=== PATIENT | male | born 1965 | race Caucasian/White ===

== ENCOUNTER 2023-07-07 22:42 | Emergency (ER) | payer OTHER, SELFPAY ==
[2023-07-07 22:46] VITALS: BP 123/76; PULSE 99; RESP 18; TEMP 35.6; O2SAT 96
--- NOTE | 2023-07-07 23:13 | CRLHL7_ITS ---
For Patients: As a result of the Century Cures Act, medical imaging exams and procedure reports are released immediately into your electronic medical record. You may view this report before your referring provider. If you have questions, please contact your health care provider. INDICATION: Right lower quadrant pain. Fevers, chills TECHNIQUE: Multiplanar CT examination of the abdomen and pelvis were acquired after the administration of 83 mL Isovue 370 intravenously and oral contrast. COMPARISON: None. FINDINGS: Lower chest: Linear bandlike opacifications of the lung bases likely due to subsegmental atelectasis and/or scarring. Normal heart size. No focal consolidation. Liver: Normal. Gallbladder/Biliary: Normal. No biliary ductal dilitation. Pancreas: Normal. Spleen: Normal. Adrenal Glands: Normal. Kidneys/Ureters: Edematous right kidney, with regions of geographic hypoenhancement. There is mild right hydroureteronephrosis to the level of the proximal right ureter where there is an obstructing 6 mm calculus. There may be right mild ureteral wall thickening and enhancement. The left kidney and ureter is unremarkable. No left-sided hydroureteronephrosis. There are several nonobstructive calculi within the collecting system of both kidneys. Mild perinephric fat stranding on the right. Bladder: Unremarkable. Bowel: No obstruction or bowel wall thickening. The appendix is normal. No significant colonic diverticulosis. Pelvic organs: Unremarkable. Peritoneum: No free fluid or pneumoperitoneum. No drainable fluid collections. Vessels: Normal. Portal vein remains patent. Mild atherosclerotic disease. Lymph Nodes: No lymphadenopathy. Abdominal Wall/Soft Tissues: Unremarkable. Bones: Unremarkable. IMPRESSION: 1. Mild right hydronephrosis to the level of the proximal right ureter where there is a 6 mm obstructing calculus. Additionally, there are regions of geographic hypo enhancement involving the right renal parenchyma, with enhancement of the ureteral wall, which can be seen with pyelonephritis and ureteritis. Correlation with urinalysis is advised. 2. No acute appendicitis. Please note that all CT scans at this facility use dose modulation, iterative reconstruction, and/or weight-based dosing when appropriate to reduce radiation dose to as low as reasonably achievable. Dictated by Richy Hartman MD @ 07/08/2023 1:32:24 AM (Electronically Signed)
--- NOTE | 2023-07-07 23:14 | ED_ITS ---
HPI - Abdominal Pain General Date Seen: 07/07/23 <Arnol Cárdenas MD - Last Filed: 07/08/23 13:48> Chief Complaint: Abdominal Pain <Arnol Cárdenas MD - Last Filed: 07/08/23 13:48> Stated Complaint: abdominal pain, fever, chills, pos kidney stones <Arnol Cárdenas MD - Last Filed: 07/08/23 13:48> Time Seen by Provider: 07/07/23 22:57 <Arnol Cárdenas MD - Last Filed: 07/08/23 13:48> Source: patient and family <Arnol Cárdenas MD - Last Filed: 07/08/23 13:48> Mode of arrival: ambulatory <Arnol Cárdenas MD - Last Filed: 07/08/23 13:48> Limitations: no limitations <Arnol Cárdenas MD - Last Filed: 07/08/23 13:48> History of Present Illness HPI narrative: 58-year-old previously healthy gentleman presents here with his family, sister and niece, with a history of abdominal pain, fevers up to 101 at home. He is worried about possible kidney stones, as he has had these in the past or possible kidney infection, he does not have any dysuria frequency of urination, he did vomit once at home. Dark color but no blood and by history no coffee grounds. He has had no bowel movements today has not been passing any gas, took Tylenol ibuprofen yesterday with really no improvement of his pain, but then took a hydrocodone approximately 30 minutes before coming in, his mother's old medication, 10 mg in his pain is markedly improved, going from approximately a 10 to a 1. The bumps on the way over did cause him some discomfort, he walks hunched over according to his sister. No previous abdominal surgery is noted. He is on no chronic medications, no history of hospitalizations or surgeries. He smoked for approximately 30+ years 1 pack per day, uses alcohol irregularly last drank 2 weeks ago no use of drugs. COVID status is unknown <Arnol Cárdenas MD - Last Filed: 07/08/23 13:48> Pertinent past history: none <Arnol Cárdenas MD - Last Filed: 07/08/23 13:48> Location: RUQ and RLQ <Arnol Cárdenas MD - Last Filed: 07/08/23 13:48> Severity: moderate <Arnol Cárdenas MD - Last Filed: 07/08/23 13:48> Quality: cramping and stabbing <Arnol Cárdenas MD - Last Filed: 07/08/23 13:48> Radiation: back <Arnol Cárdenas MD - Last Filed: 07/08/23 13:48> Migration to: no migration <Arnol Cárdenas MD - Last Filed: 07/08/23 13:48> Exacerbating factors: movement <Arnol Cárdenas MD - Last Filed: 07/08/23 13:48> Relieving factors: rest <Arnol Cárdenas MD - Last Filed: 07/08/23 13:48> Associated symptoms: nausea, vomiting, fever and chills <Arnol Crádenas MD - Last Filed: 07/08/23 13:48> Treatments prior to arrival: NSAIDs and prescription analgesics <Arnol Cárdenas MD - Last Filed: 07/08/23 13:48> Related Data Allergies/Adverse Reactions: Allergies Allergy/AdvReac Type Severity Reaction Status Date / Time No Known Drug Allergies Allergy Verified 07/07/23 22:50 <Arnol Cárdenas MD - Last Filed: 07/08/23 13:48> Review of Systems Status of ROS Reports: 10 or more systems reviewed and unremarkable except as noted in History and below <Arnol Cárdenas MD - Last Filed: 07/08/23 13:48> PFSH PFS Social History: Social History How often do you have a drink containing alcohol: never AUDIT-C Alcohol total score: 0 Non-prescribed substance use: denies use <Arnol Cárdenas MD - Last Filed: 07/08/23 13:48> Exam Narrative: Exam Narrative: Patient is seen in room 5, with his family. He is alert and interactive with me, pupils are equal round reactive to light there is no scleral icterus redness is TMs are normal his oropharynx is normal, neck is supple full range of motion is TMs are normal. His chest is good air entry bilaterally with no wheezing crackles noted his heart sounds are normal. His abdomen shows tenderness moderate in the right lower quadrant. Testicles both descended and normal, normal penis, no hernias noted. Bowel sounds are normal, no organomegaly is noted, back is nontender to palpation is lower extremities are normal, with normal pulses no edema. Skin reveals no rashes. <Arnol Cárdenas MD - Last Filed: 07/08/23 13:48> Const: Vital Signs, click to edit/add: Vital Signs - 24 hr 07/07/23 22:46 07/08/23 00:30 07/08/23 00:33 Temperature 96.0 F L Pulse Rate 79 Pulse Rate [Left P ulse Oximeter] 99 74 Respiratory Rate 18 16 Blood Pressure 99/58 L Blood Pressure [Ri ght Upper Arm] 123/76 99/58 L Pulse Oximetry 96 95 94 Oxygen Delivery Me thod Room Air Room Air 07/08/23 01:00 07/08/23 01:11 07/08/23 01:20 Temperature 98.0 F Pulse Rate 76 79 Pulse Rate [Left P ulse Oximeter] Respiratory Rate Blood Pressure Blood Pressure [Ri ght Upper Arm] Pulse Oximetry 94 92 Oxygen Delivery Me thod 07/08/23 01:40 07/08/23 01:49 07/08/23 01:50 Temperature Pulse Rate 79 72 72 Pulse Rate [Left P ulse Oximeter] Respiratory Rate Blood Pressure 104/70 Blood Pressure [Ri ght Upper Arm] Pulse Oximetry 93 98 96 Oxygen Delivery Me thod 07/08/23 02:00 07/08/23 02:01 07/08/23 02:20 Temperature Pulse Rate 77 79 74 Pulse Rate [Left P ulse Oximeter] Respiratory Rate Blood Pressure 93/65 Blood Pressure [Ri ght Upper Arm] Pulse Oximetry 95 95 98 Oxygen Delivery Me thod 07/08/23 02:22 07/08/23 02:40 07/08/23 02:41 Temperature Pulse Rate 75 80 79 Pulse Rate [Left P ulse Oximeter] Respiratory Rate Blood Pressure 107/69 113/80 Blood Pressure [Ri ght Upper Arm] Pulse Oximetry 97 95 95 Oxygen Delivery Me thod 07/08/23 02:42 07/08/23 03:00 07/08/23 03:01 Temperature Pulse Rate 79 82 80 Pulse Rate [Left P ulse Oximeter] Respiratory Rate Blood Pressure 108/93 H Blood Pressure [Ri ght Upper Arm] Pulse Oximetry 95 97 96 Oxygen Delivery Me thod 07/08/23 03:20 07/08/23 03:21 07/08/23 03:41 Temperature Pulse Rate 83 81 Pulse Rate [Left P ulse Oximeter] Respiratory Rate Blood Pressure 108/82 117/92 H Blood Pressure [Ri ght Upper Arm] Pulse Oximetry 96 99 Oxygen Delivery Me thod 07/08/23 04:02 07/08/23 04:22 07/08/23 04:41 Temperature Pulse Rate Pulse Rate [Left P ulse Oximeter] Respiratory Rate Blood Pressure 134/43 L 116/44 L 119/70 Blood Pressure [Ri ght Upper Arm] Pulse Oximetry Oxygen Delivery Me thod <Arnol Cárdenas MD - Last Filed: 07/08/23 13:48> Vital Signs, click to edit/add: Vital Signs - 24 hr 07/07/23 22:46 07/08/23 00:30 07/08/23 00:33 Temperature 96.0 F L Pulse Rate 79 Pulse Rate [Left P ulse Oximeter] 99 74 Respiratory Rate 18 16 Blood Pressure 99/58 L Blood Pressure [Ri ght Upper Arm] 123/76 99/58 L Pulse Oximetry 96 95 94 Oxygen Delivery Me thod Room Air Room Air 07/08/23 01:00 07/08/23 01:11 07/08/23 01:20 Temperature 98.0 F Pulse Rate 76 79 Pulse Rate [Left P ulse Oximeter] Respiratory Rate Blood Pressure Blood Pressure [Ri ght Upper Arm] Pulse Oximetry 94 92 Oxygen Delivery Me thod 07/08/23 01:40 07/08/23 01:49 07/08/23 01:50 Temperature Pulse Rate 79 72 72 Pulse Rate [Left P ulse Oximeter] Respiratory Rate Blood Pressure 104/70 Blood Pressure [Ri ght Upper Arm] Pulse Oximetry 93 98 96 Oxygen Delivery Me thod 07/08/23 02:00 07/08/23 02:01 07/08/23 02:20 Temperature Pulse Rate 77 79 74 Pulse Rate [Left P ulse Oximeter] Respiratory Rate Blood Pressure 93/65 Blood Pressure [Ri ght Upper Arm] Pulse Oximetry 95 95 98 Oxygen Delivery Me thod 07/08/23 02:22 07/08/23 02:40 07/08/23 02:41 Temperature Pulse Rate 75 80 79 Pulse Rate [Left P ulse Oximeter] Respiratory Rate Blood Pressure 107/69 113/80 Blood Pressure [Ri ght Upper Arm] Pulse Oximetry 97 95 95 Oxygen Delivery Me thod 07/08/23 02:42 07/08/23 03:00 07/08/23 03:01 Temperature Pulse Rate 79 82 80 Pulse Rate [Left P ulse Oximeter] Respiratory Rate Blood Pressure 108/93 H Blood Pressure [Ri ght Upper Arm] Pulse Oximetry 95 97 96 Oxygen Delivery Me thod 07/08/23 03:20 07/08/23 03:21 07/08/23 03:41 Temperature Pulse Rate 83 81 Pulse Rate [Left P ulse Oximeter] Respiratory Rate Blood Pressure 108/82 117/92 H Blood Pressure [Ri ght Upper Arm] Pulse Oximetry 96 99 Oxygen Delivery Me thod 07/08/23 04:02 07/08/23 04:22 07/08/23 04:41 Temperature Pulse Rate Pulse Rate [Left P ulse Oximeter] Respiratory Rate Blood Pressure 134/43 L 116/44 L 119/70 Blood Pressure [Ri ght Upper Arm] Pulse Oximetry Oxygen Delivery Me thod <Edwige Deluca MD - Last Filed: 07/08/23 07:03> Documenting provider has reviewed patient's vital signs: yes <Arnol Cárdenas MD - Last Filed: 07/08/23 13:48> Course Reevaluation(s) Reevaluation #1: Finding suspicious for obstructing kidney stone based on CT. Significant leukocytosis and elevation of CRP concerning for infection. Blood cultures are collected, Zosyn is started. I spoke with Urology through the [facility]. Patient is accepted for transfer to [facility] [place]. Consent obtained. Patient transferred by ALS ground with no complications. Pressures improved after initial fluid bolus. Did not require any further pain medication treatment. Stable condition. <Edwige Deluca MD - Last Filed: 07/08/23 07:03> Vital Signs Vital signs: Initial Vital Signs Temperature 96.0 F L 07/07/23 22:46 Temperature Source Temporal Artery Scan 07/07/23 22:46 Pulse Rate 99 07/07/23 22:46 Pulse Rhythm Regular 12/10/23 22:46 Respiratory Rate 18 07/07/23 22:46 Blood Pressure 123/76 07/07/23 22:46 Blood Pressure Mean 91 07/07/23 22:46 Blood Pressure Position Sitting 07/07/23 22:46 Pulse Oximetry 96 07/07/23 22:46 Oxygen Delivery Method Room Air 07/07/23 22:46 Vital Signs Temperature 96.0 F L 07/07/23 22:46 Pulse Rate 99 07/07/23 22:46 Respiratory Rate 18 07/07/23 22:46 Blood Pressure 123/76 07/07/23 22:46 Pulse Oximetry 96 07/07/23 22:46 Oxygen Delivery Method Room Air 07/07/23 22:46 Temperature 98.0 F 07/08/23 01:11 Pulse Rate 81 07/08/23 03:21 Respiratory Rate 16 07/08/23 00:30 Blood Pressure 119/70 07/08/23 04:41 Pulse Oximetry 99 07/08/23 03:21 Oxygen Delivery Method Room Air 07/08/23 00:30 <Arnol Cárdenas MD - Last Filed: 07/08/23 13:48> Initial Vital Signs Temperature 96.0 F L 07/07/23 22:46 Temperature Source Temporal Artery Scan 07/07/23 22:46 Pulse Rate 99 07/07/23 22:46 Pulse Rhythm Regular 07/07/23 22:46 Respiratory Rate 18 07/07/23 22:46 Blood Pressure 123/76 07/07/23 22:46 Blood Pressure Mean 91 07/07/23 22:46 Blood Pressure Position Sitting 07/07/23 22:46 Pulse Oximetry 96 07/07/23 22:46 Oxygen Delivery Method Room Air 07/07/23 22:46 Vital Signs Temperature 96.0 F L 07/07/23 22:46 Pulse Rate 99 07/07/23 22:46 Respiratory Rate 18 07/07/23 22:46 Blood Pressure 123/76 07/07/23 22:46 Pulse Oximetry 96 07/07/23 22:46 Oxygen Delivery Method Room Air 07/07/23 22:46 Temperature 98.0 F 07/08/23 01:11 Pulse Rate 81 07/08/23 03:21 Respiratory Rate 16 07/08/23 00:30 Blood Pressure 119/70 07/08/23 04:41 Pulse Oximetry 99 07/08/23 03:21 Oxygen Delivery Method Room Air 07/08/23 00:30 <Edwige Deluca MD - Last Filed: 07/08/23 07:03> Medications Administered Medications: Discontinued Medications Generic Name Dose Route Start Last Admin Trade Name Freq PRN Reason Stop Dose Admin Sodium Chloride 1,000 mls @ 1,000 mls/hr 07/07/23 23:15 07/08/23 01:12 0.9 % Sodium Chloride 1000 Ml IV 07/08/23 00:14 Infused .Q1H ANAYELI Infusion Piperacillin Sod/Tazobactam 100 mls @ 200 mls/hr 07/07/23 23:48 07/08/23 00:46 Sod 4.5 gm/ Sodium Chloride IVPB 07/07/23 23:49 Infused ONCE ONE Infusion Ketorolac Tromethamine 30 mg 07/07/23 23:12 07/07/23 23:30 Ketorolac 30 Mg/Ml Inj IVP 07/07/23 23:13 30 mg ONCE ONE Administration Ondansetron HCl 4 mg 07/07/23 23:12 07/07/23 23:30 Ondansetron 2 Mg/Ml Inj IVP 07/07/23 23:13 4 mg ONCE ONE Administration <Arnol Cárdenas MD - Last Filed: 07/08/23 13:48> Discontinued Medications Generic Name Dose Route Start Last Admin Trade Name Freq PRN Reason Stop Dose Admin Sodium Chloride 1,000 mls @ 1,000 mls/hr 07/07/23 23:15 07/08/23 01:12 0.9 % Sodium Chloride 1000 Ml IV 07/08/23 00:14 Infused .Q1H ANAYELI Infusion Piperacillin Sod/Tazobactam 100 mls @ 200 mls/hr 07/07/23 23:48 07/08/23 00:46 Sod 4.5 gm/ Sodium Chloride IVPB 07/07/23 23:49 Infused ONCE ONE Infusion Ketorolac Tromethamine 30 mg 07/07/23 23:12 07/07/23 23:30 Ketorolac 30 Mg/Ml Inj IVP 07/07/23 23:13 30 mg ONCE ONE Administration Ondansetron HCl 4 mg 07/07/23 23:12 07/07/23 23:30 Ondansetron 2 Mg/Ml Inj IVP 07/07/23 23:13 4 mg ONCE ONE Administration <Edwige Deluca MD - Last Filed: 07/08/23 07:03> MDM - Abdominal Pain MDM Narrative Medical decision making narrative: During this evaluation of this patient I considered multiple differential diagnosis is which included the life-threatening such as appendicitis, aortic aneurysm, mesenteric ischemia, bowel perforation, volvulus, and bowel obstruction. Other differential diagnosis is include but are not limited to cholecystitis, pancreatitis, hepatitis, gastritis, GERD, diverticulitis, peptic ulcer disease, pyelonephritis/UTI, renal colic/stone, testicular torsion as well as other acute scrotal processes, inflammatory bowel disease, as well as other etiologies <Arnol Cárdenas MD - Last Filed: 07/08/23 13:48> Lab Data Labs: Lab Results 07/07/23 07/07/23 07/08/23 Range/Units 23:05 23:25 03:21 WBC 29.08 H* (4.50-11.00) K/uL RBC 4.91 (4.30-5.90) m/uL Hgb 14.9 (13.5-17.5) gm/dL Hct 44.7 (37.0-53.0) % MCV 91 (80-100) fL MCH 30 (26-34) pg MCHC 33 (32-36) gm/dL RDW Coeff of Tae 15.8 H (11.5-15.5) % Plt Count 347 (140-440) K/uL Neut % (Auto) 86.8 H (42.0-72.0) % Lymph % (Auto) 4.8 L (20-44) % Camp % (Auto) 6.9 (0.0-11.0) % Eos % (Auto) 0.0 (0.0-7.0) % Baso % (Auto) 0.0 (0.0-3.0) % Neut # (Auto) 25.20 H (1.7-7.0) K/uL Lymph # (Auto) 1.40 (0.90-2.90) K/uL Camp # (Auto) 2.00 H (0.00-0.90) K/UL Eos # (Auto) 0.00 (0.00-0.50) K/uL Baso # (Auto) 0.00 (0.00-0.30) K/uL Abs Immat Gran (auto) 0.40 H (0.00-0.30) K/uL Imm/Tot Granulo (auto) 1.5 % Diff Slide Review Acceptable Review (Acceptable) Sodium 131 L (135-149) mmol/L Potassium 3.8 (3.6-5.1) mmol/L Chloride 103 (96-114) mmol/L Carbon Dioxide 21 (20-32) mmol/L Anion Gap 7 (7-15) mEq/L BUN 16 (7-30) mg/dL Creatinine 1.0 (0.5-1.5) mg/dL Estimated GFR 88 ml/min Glucose 146 H (60-115) mg/dL Lactate 0.9 (0.5-1.9) mmol/L Calcium 9.1 (8.4-10.6) mg/dL Total Bilirubin 0.8 (0.1-1.5) mg/dL Direct Bilirubin 0.1 (0.0-0.5) mg/dL AST 21 (12-35) U/L ALT 24 (4-50) U/L Alkaline Phosphatase 51 (40-150) U/L C-Reactive Protein 30.5 H (0.5-1.0) mg/dL Total Protein 7.4 (6.0-8.3) g/dL Albumin 4.1 (3.3-5.0) g/dL Amylase 50 (18-89) U/L Lipase 18 L (23-300) U/L Procalcitonin 5.62 H (<0.50) ng/mL Urine Color Yellow (Yellow) Urine Appearance Cloudy A (Clear) Urine pH 5.5 (5.0-8.5) Ur Specific [place] 1.020 (1.000-1.030) Urine Protein 3+ A (Negative) Urine Glucose (UA) Negative (Negative) Urine Ketones Negative (Negative) Urine Blood 2+ A (Negative) Urine Nitrite Positive A (Negative) Urine Bilirubin Negative (Negative) Urine Urobilinogen 0.2 (0.2-1.0) Ur Leukocyte Esterase Trace A (Negative) Urine RBC 0-2 (0-2) Urine WBC 2-5 (0-5) Ur Squamous Epith Cells Moderate A (None-Few) Urine Bacteria Moderate A (None) SARS-CoV-2 (PCR) Negative SARS-CoV-2 (Negative) Influenza Type A (PCR) Negative PCR FLU A (Negative) Influenza Type B (PCR) Negative PCR FLU B (Negative) RSV (PCR) Negative PCR RSV (Negative) <Arnol Cárdenas MD - Last Filed: 07/08/23 13:48> Lab Results 07/07/23 07/07/23 07/08/23 Range/Units 23:05 23:25 03:21 WBC 29.08 H* (4.50-11.00) K/uL RBC 4.91 (4.30-5.90) m/uL Hgb 14.9 (13.5-17.5) gm/dL Hct 44.7 (37.0-53.0) % MCV 91 (80-100) fL MCH 30 (26-34) pg MCHC 33 (32-36) gm/dL RDW Coeff of Tae 15.8 H (11.5-15.5) % Plt Count 347 (140-440) K/uL Neut % (Auto) 86.8 H (42.0-72.0) % Lymph % (Auto) 4.8 L (20-44) % Camp % (Auto) 6.9 (0.0-11.0) % Eos % (Auto) 0.0 (0.0-7.0) % Baso % (Auto) 0.0 (0.0-3.0) % Neut # (Auto) 25.20 H (1.7-7.0) K/uL Lymph # (Auto) 1.40 (0.90-2.90) K/uL Camp # (Auto) 2.00 H (0.00-0.90) K/UL Eos # (Auto) 0.00 (0.00-0.50) K/uL Baso # (Auto) 0.00 (0.00-0.30) K/uL Abs Immat Gran (auto) 0.40 H (0.00-0.30) K/uL Imm/Tot Granulo (auto) 1.5 % Diff Slide Review Acceptable Review (Acceptable) Sodium 131 L (135-149) mmol/L Potassium 3.8 (3.6-5.1) mmol/L Chloride 103 (96-114) mmol/L Carbon Dioxide 21 (20-32) mmol/L Anion Gap 7 (7-15) mEq/L BUN 16 (7-30) mg/dL Creatinine 1.0 (0.5-1.5) mg/dL Estimated GFR 88 ml/min Glucose 146 H (60-115) mg/dL Lactate 0.9 (0.5-1.9) mmol/L Calcium 9.1 (8.4-10.6) mg/dL Total Bilirubin 0.8 (0.1-1.5) mg/dL Direct Bilirubin 0.1 (0.0-0.5) mg/dL AST 21 (12-35) U/L ALT 24 (4-50) U/L Alkaline Phosphatase 51 (40-150) U/L C-Reactive Protein 30.5 H (0.5-1.0) mg/dL Total Protein 7.4 (6.0-8.3) g/dL Albumin 4.1 (3.3-5.0) g/dL Amylase 50 (18-89) U/L Lipase 18 L (23-300) U/L Procalcitonin 5.62 H (<0.50) ng/mL Urine Color Yellow (Yellow) Urine Appearance Cloudy A (Clear) Urine pH 5.5 (5.0-8.5) Ur Specific [place] 1.020 (1.000-1.030) Urine Protein 3+ A (Negative) Urine Glucose (UA) Negative (Negative) Urine Ketones Negative (Negative) Urine Blood 2+ A (Negative) Urine Nitrite Positive A (Negative) Urine Bilirubin Negative (Negative) Urine Urobilinogen 0.2 (0.2-1.0) Ur Leukocyte Esterase Trace A (Negative) Urine RBC 0-2 (0-2) Urine WBC 2-5 (0-5) Ur Squamous Epith Cells Moderate A (None-Few) Urine Bacteria Moderate A (None) SARS-CoV-2 (PCR) Negative SARS-CoV-2 (Negative) Influenza Type A (PCR) Negative PCR FLU A (Negative) Influenza Type B (PCR) Negative PCR FLU B (Negative) RSV (PCR) Negative PCR RSV (Negative) <Edwige Deluca MD - Last Filed: 07/08/23 07:03> Discharge Plan Discharge Clinical Impression: Acute pyelonephritis, Urinary tract obstruction by kidney stone <Arnol Cárdenas MD - Last Filed: 07/08/23 13:48> Patient Disposition: [facility] <Arnol Cárdenas MD - Last Filed: 07/08/23 13:48> Discharge Location: [facility] <Arnol Cárdenas MD - Last Filed: 07/08/23 13:48>
[2023-07-07 23:20] LABS: Lactate* 0.9 mmol/L (0.5-1.9)
[2023-07-07 23:24] LABS: Albumin* 4.1 g/dL (3.3-5.0)
[2023-07-07 23:25] LABS: Chloride* 103 mmol/L (96-114); Potassium* 3.8 mmol/L (3.6-5.1); Sodium* 131 mmol/L (135-149)
[2023-07-07 23:27] LABS: Amylase* 50 U/L (18-89); Estimated Glomerular Filt Rate 88 ml/min
[2023-07-07 23:28] LABS: Alanine Aminotransferase* 24 U/L (4-50); Alkaline Phosphatase* 51 U/L (40-150); Anion Gap 7 mEq/L (7-15); Aspartate Amino Transferase* 21 U/L (12-35); Bilirubin Direct* 0.1 mg/dL (0.0-0.5); Bilirubin Total* 0.8 mg/dL (0.1-1.5); Blood Urea Nitrogen* 16 mg/dL (7-30); Calcium* 9.1 mg/dL (8.4-10.6); Carbon Dioxide* 21 mmol/L (20-32); Glucose* 146 mg/dL (60-115); Lipase* 18 U/L (23-300); Total Protein* 7.4 g/dL (6.0-8.3)
[2023-07-07] MEDS: KETOROLAC 30 MG/ML inj IVP (23:30)
[2023-07-07] MEDS: ONDANSETRON 2 MG/ML inj 4 MG IVP (23:30)
[2023-07-07] MEDS: 0.9 % SODIUM CHLORIDE 1000 ml 1,000 ML IV (23:30)
[2023-07-07 23:31] LABS: Hematocrit 44.7 % (37.0-53.0); Hemoglobin* 14.9 gm/dL (13.5-17.5); Immature Granulocytes Pct Auto 1.5 %; Lymphocytes Percent Auto 4.8 % (20-44); Mean Corpuscular HGB Conc 33 gm/dL (32-36); Mean Corpuscular Hemoglobin 30 pg (26-34); Mean Corpuscular Volume 91 fL (80-100); Monocytes Percent Auto 6.9 % (0.0-11.0); Neutrophils Percent Auto 86.8 % (42.0-72.0); Platelet Count* 347 K/uL (140-440); RDW Coefficient of Variation % 15.8 % (11.5-15.5); Red Blood Count 4.91 m/uL (4.30-5.90)
[2023-07-07 23:35] LABS: Slide Review Reflex Yes; White Blood Count* 29.08 K/uL (4.50-11.00)
[2023-07-07 23:40] LABS: Slide Review Acceptable Review (Acceptable)
[2023-07-07 23:45] LABS: Procalcitonin* 5.62 ng/mL (<0.50)
[2023-07-08] VITALS (23 sets, daily range): BP systolic 93–134; BP diastolic 43–93; PULSE 72–83; RESP 16; TEMP 36.7; O2SAT 92–99
[2023-07-08 00:03] LABS: C Reactive Protein* 30.5 mg/dL (0.5-1.0)
[2023-07-08] MEDS: PIPERACILLIN/TAZOBACTAM 4.5 GM in 0.9 % SODIUM CHLORIDE Mini-bag 100 ML IVPB (00:11)
[2023-07-08 00:16] LABS: PCR FLU A Negative PCR FLU A (Negative); PCR FLU B Negative PCR FLU B (Negative); PCR RSV Negative PCR RSV (Negative)
[2023-07-08 00:18] LABS: SARS PCR* Negative SARS-CoV-2 (Negative)
--- NOTE | 2023-07-08 01:53 | ED.NURSE ---
Naheed Cutler [phone] (sister) Merry Rodríguez [phone] (Niece)
[2023-07-08 03:31] LABS: Appearance Urine Cloudy (Clear); Bilirubin Urine Negative (Negative); Blood Urine 2+ (Negative); Color Urine Yellow (Yellow); Glucose Urine Negative (Negative); Ketones Urine Negative (Negative); Leukocyte Esterase Urine Trace (Negative); Nitrite Urine Positive (Negative); Protein Urine 3+ (Negative); Urobilinogen Urine 0.2 (0.2-1.0); pH Urine 5.5 (5.0-8.5)
[2023-07-08 03:37] LABS: Bacteria Urine Moderate; RBC Urine 0-2 (0-2); Squamous Epithelial Cell Urine Moderate (None-Few)
--- NOTE | 2023-07-08 04:33 | ED.NURSE ---
Rn to Rn report adis. Pt going to [address] [place] [address]. Room 813. Call back number,
--- NOTE | 2023-07-08 04:36 | ED.NURSE ---
Informed sister of transfer to [place] via phone at this time.
--- NOTE | 2023-07-08 04:51 | ED.NURSE ---
Report given to [facility]. EMS left at [phone]
== END 2023-07-08 04:56 | disposition short-term general hospital (02) ==
PROVIDERS: Emergency Provider Family Medicine
DX: N20.0 Calculus of kidney (principal); N39.0 Urinary tract infection, site not specified
CPT/HCPCS: 36415; 74177; 80048; 80076; 81001; 82150; 83605; 83690; 84145; 85025; 86140; 87040; 87086; 87186; 87631; 96365; 96375; 99284; J1885; J2405; J2543; J7030; Q9967

== ENCOUNTER 2023-07-08 04:50 | Outpatient (CLI) | payer OTHER, SELFPAY | END 2023-07-08 04:51 | disposition home or self-care (01) | PROVIDERS: Visit Provider Family Medicine | DX: N20.0 Calculus of kidney (principal) | CPT/HCPCS: A0425; A0427 ==

== ENCOUNTER 2025-07-27 13:34 | Emergency (ER) | payer MEDICAID, SELFPAY ==
--- OUTSIDE RECORDS SUMMARY | 2025-07-27 13:37 | XMS_ITS | Clinical Summary ---
Author Organization [facility] Address [address] [place] [address] Care Team Providers Care [facility] Community Liaison Name Role Phone No Ref-Primary, Physician Primary Care Provider Allergies No known active allergies Medications MedicationSigDispense QuantityRefillsLast FilledStart DateEnd DateStatus acetaminophen (TYLENOL) 500 MG tablet Indications:Urinary tract obstruction by kidney stoneTake 1 tablet (500 mg) by mouth every 6 hours as needed for mild pain 30 tablet 07/26/2023ctive ibuprofen (ADVIL/MOTRIN) 400 MG tablet Indications:Urinary tract obstruction by kidney stoneTake 1 tablet (400 mg) by mouth every 6 hours as needed for moderate pain 30 tablet 07/26/2023ctive Active Problems ProblemNoted DateDiagnosed DateUrinary tract obstruction by kidney stone 07/08/2023 Social History Tobacco UseTypesPacks/DayYears UsedDateSmoking Tobacco: Every DayCigarettes Smokeless Tobacco: Never Tobacco Cessation:Ready to Q uit: No; Counseling Given: Yes Alcohol UseStandard Drinks/WeekCommentsYes0 (1 standard drink = 0.6 oz pure alcohol)1-2 beer per weekAdolescent EducationAnswerDate RecordedGetting School Help NeededNot on file07/08/2023Sex and Gender InformationValueDate RecordedSex Assigned at BirthNot on fileLegal XwtUutf91/11/2023 2:21 AM CSTGender Identity Not on fileSexual OrientationNot on file Last Filed Vital Signs Vital SignReadingTime TakenCommentsBlood Sufqcvxu407/7407/26/2023 10:39 AM CARE MANAGEMENT ASSOCIATE Zxpsz434407/26/2023 10:39 AM TOFUodhqrhzpsx02.4 ??C (97.5 ??F)07/26/2023 10:39 AM CSTRespiratory Pqid6413 10:39 AM CSTOxygen Urygicxmwf30%07/26/2023 10:39 AM CSTInhaled Oxygen Concentration--Hdhzjh82.7 kg (173 lb 8 oz)07/26/2023 5:57 AM KGBWvwuzw319.3 cm (5' 11)07/26/2023 5:57 AM CSTBody Mass Index24. 5:57 AM CARE MANAGEMENT ASSOCIATE Plan of Treatment Health MaintenanceDue DateLast DoneCommentsADVANCE CARE MCTURFPG1966ANNUAL REVIEW OF HM UYKRAK81 1966CT LMBDEPINITTB16/10/9567BFQ02 1966FLEX SIG 1966sDNA (Cologuard)1966YEARLY PREVENTIVE VISIT1969COLONOSCOPY 1976COLORECTAL CANCER QPBHRGGPO34/10/1976HIV CMHQXMTID84/10/1981HEPATITIS C HQMBWOSDR67/10/1984HEPATITIS B VACCINE (1 of 3 - 19+ 3-dose series)1985 DTAP/TDAP/TD VACCINE (1 - Tdap)05/07/19919110GTKPY58/10/2006LUNG CANCER SCREENING 2016PNEUMOCOCCAL VACCINE 50+ YEARS (1 of 1 - PCV)2016ZOSTER VACCINE (1 of 2)2016PHQ-2 (once per calendar year)5COVID-19 VACCINE (1 - 2024- season)2025INFLUENZA VACCINE (#1)2025DIABETES SCREENING 612/06/2023, 07/08/2023HPV VACCINE (No Doses Required)Completed MENINGITIS VACCINEAged OutNo longer eligible based on patient's age to complete this topic Medical Devices ImplantedTypeAreaManufacturerDevice IdentifierShelf Expiration DateModel / Serial / LotStent Ureteral Polaris Ultra [id number] - [id number] Implanted:Qty: 1 on 07/26/2023 [facility] UreterSMITACannMedica Pharma [id number] 03/07/[id number] / / [id number]wpoLvuejn IdentifierShelf Expiration DateModel / Serial / LotStent Ureteral Percuflex Plus [id number] - [id number] Implanted:Qty: 1 on 07/08/2023 by Rolando Hadley MD at [facility] Explanted:Qty: 1 on 07/26/2023 at [facility] Right: [facility] [employer] [id number] / / [id number] Procedures Procedure NamePriorityDate/TimeAssociated DiagnosisCommentsCOMPREHENSIVE METABOLIC VYVZUSkqpesd30/12/2023 6:51 AM CARE MANAGEMENT ASSOCIATE from Last 3 Months or Most Recently Relevant to Health Maintenance Results * (ABNORMAL) Comprehensive metabolic panel (07/09/2023 6:51 AM CARE MANAGEMENT ASSOCIATE)Component ValueRef RangeTest MethodAnalysis TimePerformed AtPathologist SignatureSodium 516334 - 145 mmol/L109/09/2022 7:25 AM CSTUR LABORATORYComment:Reference intervals for this test were updated on 04/23/2023 to more accurately reflect our healthypopulation. There may be differences in the flagging of prior results with similar values performedwith this method. Interpretation of those prior results can be made in the context of the updated reference intervals. Potassium4.63.4 - 5.3 mmol/L109/09/2022 7:25 AM CSTUR LABORATORYCarbon Dioxide (CO2)2822 - 29 mmol/L109/09/2022 7:25 AM CSTUR LABORATORYAnion Gap6(L)7 - 15 mmol/L109/09/2022 7:25 AM CSTUR LABORATORYUrea Yayjlhzk71.3(H)6.0 - 20.0 mg/dL 07/09/2023 7:25 AM CSTUR LABORATORYCreatinine1.110.67 - 1.17 mg/dL07/09/2023 7:25 AM CSTUR LABORATORYGFR Fqadncgo68>60 mL/min/1.13z89407/09/2023 7:25 AM CARE MANAGEMENT ASSOCIATE UR LABORATORYCalcium9.08.6 - 10.0 mg/dL07/09/2023 7:25 AM CSTUR LABORATORY Bvvsjhxe47830 - 107 mmol/L109/09/2022 7:25 AM CSTUR SWJBADDCTXMpyopde856(H)70 - 99 mg/dL07/09/2023 7:25 AM CSTUR LABORATORYAlkaline Eovvwhocdnl7292 - 150 U/L 07/09/2023 7:25 AM CSTUR LABORATORYComment:Reference intervals for this test were updated on 06/11/2023 to more accurately reflect our healthypopulation. There may be differences in the flagging of prior results with similar values performedwith this method. Interpretation of those prior results can be made in the context of the updated reference intervals.SWA860 - 45 U/L109/09/2022 7:25 AM CSTUR LABORATORYComment:Reference intervals for this test were updated on 01/07/2023 to more accurately reflect our healthy population. There may be differences in the flagging of prior results with similar values performed w ith this method. Interpretation of those prior results can be made in the context of the updated reference intervals.XBG663 - 70 U/L109/09/2022 7:25 AM CSTUR LABORATORYComment:Reference intervals for this test were updated on 01/07/2023 to more accurately reflect our healthy population. There may be differences in the flagging of prior results with similar values performed w ith this method. Interpretation of those prior results can be made in the context of the updated reference intervals.Protein Total6.86.4 - 8.3 g/dL 07/09/2023 7:25 AM CSTUR LABORATORYAlbumin3.3(L)3.5 - 5.2 g/dL07/09/2023 7:25 AM CSTUR LABORATORYBilirubin Total0.4<=1.2 mg/dL07/09/2023 7:25 AM CSTUR LABORATORYSpecimen (Source)Anatomical Location / LateralityCollection Method / VolumeCollection TimeReceived TimeBloodSTRUCTURE OF LEFT HAND / Unknown Venipuncture / Ctrhisc8207/09/2023 6:51 AM CST07/09/2023 7:02 AM CARE MANAGEMENT ASSOCIATE Narrative Authorizing ProviderResult TypeResult StatusRose Louann DOLAB - BLOOD ORDERABLESFinal ResultPerforming OrganizationAddressCity/State/ZIP CodePhone Number UR LABORATORY [facility] Acute Care Lab [address] [place] [address], [facility] [phone] from Last 3 Months or Most Recently Relevant to Health Maintenance Insurance * Guarantor: Jackie Matthews TypeRelation to PatientDate of BirthPhoneBilling AddressPersonal/[id number] (Home) [address] [place] [address] * Guarantor: Jackie Matthews TypeRelation to PatientDate of BirthPhoneBilling AddressPersonal/VlxkzdTbiw1965 [address] [place] [address] Advance Directives For more information, please contact: [phone] * Full Code (Latest Code Status on File) Date ActivatedDate LwwsfimlibeTsibqijs59/11/2023 5:53 AM07/09/2023 4:32 PMAll basic and advanced life-sustaining interventions are performed as appropriate QuestionAnswerCommentsCode status determined by:* Discussion with patient/ legal decision maker Care Teams Team MemberRelationshipSpecialtyStart DateEnd Date No Ref-Primary, Physician PCP - Dekezym37/11/23
--- OUTSIDE RECORDS SUMMARY | 2025-07-27 13:37 | XMS_ITS | Clinical Summary ---
Author Organization [facility] Address [facility] [place] [address] Care Team Providers Care Water Plant Maintenance Mechanic Name Role Phone Pcp, No Primary Care Provider Unavailabl e Allergies No known active allergies Medications No known medications Active Problems ProblemNoted DateDiagnosed DateSkin uddafc6011/12/2024 Overview (12/07/2024): 11/06/2024: Left neck: Basal cell carcinoma, nodular and infiltrative types, Mohs done 12/07/[address] Hassan Social History Tobacco UseTypesPacks/DayYears UsedDateSmoking Tobacco: Every DayCigarettes Smokeless Tobacco: Never Tobacco Cessation:Ready to Q uit: Yes; Counseling Given: Yes Alcohol UseStandard Drinks/WeekCommentsYes0 (1 standard drink = 0.6 oz pure alcohol)occSex and Gender InformationValueDate RecordedSex Assigned at BirthNot on fileLegal YukTxeh4808/11/2012 8:34 AM CSTGender IdentityNot on fileSexual OrientationNot on file Last Filed Vital Signs Vital SignReadingTime TakenCommentsBlood Lavctsak951/8904 11:04 AM CDT Llxua6690 11:04 AM ZUGEcbewkyzvvv89.8 ??C (98.2 ??F)11/03/2024 9:01 PM CDTRespiratory Tcsx953011/03/2024 9:01 PM CDTOxygen Bdwwxhsqpn58%11/03/2024 9:01 PM CDTInhaled Oxygen Concentration--Bbyrmx02 kg (183 lb)11/04/2024 11:01 AM CDT Kbfvya977.3 cm (5' 11)11/04/2024 11:01 AM CDTBody Mass Index25.52011/04/2024 11:01 AM CDT Plan of Treatment Health MaintenanceDue DateLast DoneCommentsTetanus wgrfflj5205/07/1977Depression screening for age 12+1978HIV for age 15-6505/07/1981Hepatitis C screening for age 18-7905/07/1984Hepatitis B series for 19+ (1 of 3 - 19+ 3-dose series) 1985Pneumococcal series for age 50+ (1 of 2 - PCV)1985Colonoscopy through age 7505/07/2011Lipids for age 45-Zoster (shingles) series for age 50+ (1 of 2)2016COVID-19 vaccine series ( - 2024- season) 2025Influenza Vaccine (#1)2025MI (ht and wt on same day) for age 18+/03/2025RSV vaccine for adults or (1 - 1-dose 75+ series)2041 Insurance * Guarantor: Bronson Matthews TypeRelation to PatientDate of BirthPhone Billing AddressWorkers [address]Krpw[address] [place] [address] on file Care Teams Team MemberRelationshipSpecialtyStart DateEnd Date Pcp, No PCP - General01/03/12
[2025-07-27 13:38] VITALS: BP 157/106; PULSE 78; RESP 16; TEMP 36.3; O2SAT 97; BMI 27.7
--- NOTE | 2025-07-27 14:11 | CRLHL7_ITS ---
For Patients: As a result of the Century Cures Act, medical imaging exams and procedure reports are released immediately into your electronic medical record. You may view this report before your referring provider. If you have questions, please contact your health care provider. INDICATION: Left flank pain, history of stones. TECHNIQUE: CT abdomen and pelvis without contrast. COMPARISON: CT abdomen and pelvis 07/07/2023. FINDINGS: Lower chest: Unremarkable. Liver: Normal in size and attenuation. No suspicious masses. Gallbladder and bile ducts: Cholelithiasis. No inflammation or biliary ductal dilation. Pancreas: Unremarkable. No mass or inflammation. Spleen: Normal in size. No masses. Adrenal glands: Normal in size. No nodules. Kidneys: 7 mm stone within the left proximal ureter with associated mild hydronephrosis. Punctate nonobstructing bilateral nephroliths. GI tract: Unremarkable. Normal in caliber. No sign of mass or inflammation. Normal appendix. Vasculature: Normal caliber abdominal aorta with mild atherosclerotic calcification. Lymph nodes: No lymphadenopathy. Peritoneum/Abdominal Wall: Small fat-containing umbilical hernia. No free air or significant free fluid. Pelvis: Unremarkable. No pelvic masses. Bones: Grossly unchanged lytic lesion within the intramedullary canal of the left proximal femur with peripheral sclerosis, partially imaged. IMPRESSION: 1. 7 mm stone within the left proximal ureter with associated mild hydronephrosis. 2. Additional punctate nonobstructing bilateral nephroliths. 3. 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 Please note that all CT scans at this facility use dose modulation, iterative reconstruction, and/or weight-based dosing when appropriate to reduce radiation dose to as low as reasonably achievable. Dictated by Rolando Duarte MD @ 07/27/2025 2:57:21 PM (Electronically Signed)
--- NOTE | 2025-07-27 14:12 | ED.GENADULT ---
HPI - General Adult General Chief complaint: Back Injury/Pain Stated complaint: Side and back pian Time Seen by Provider: 07/27/25 14:08 History of Present Illness HPI narrative: This 60-year-old male comes in reporting left flank pain that he thinks is a recurrent kidney stone. He had a kidney stone that occurred about a year ago and needed help from a urologist to remove it. He states that this pain began about a week ago. It was after giving blood during which time he had a vasovagal syncope event stating that he does not like needles. It was after this that he began having pain in his left flank. He does not report any fevers or dysuria symptoms. Related Data Previous Rx's ?Medication ?Instructions ?Recorded hydrocodone 5 mg-acetaminophen 325 1 tab PO Q4-6H PRN pain #20 tabs 07/27/25 mg tablet ketorolac 10 mg tablet 10 mg PO TID 5 days #15 tabs 07/27/25 ondansetron HCl 4 mg tablet 4 mg PO Q6H #20 tabs 07/27/25 tamsulosin 0.4 mg capsule 0.4 mg PO DAILY #10 caps 07/27/25 Allergies Allergy/AdvReac Type Severity Reaction Status Date / Time No Known Drug Allergies Allergy Verified 07/07/23 22:50 Review of Systems Status of ROS: Reports: 10 or more systems reviewed and unremarkable except as noted in History and below Narrative: Constitutional: No fevers, no weight gain or loss. Eyes: No discharge. No vision changes. HENT: No congestion, no sore throat, no ear pain. Cardiovascular: No chest pain, no palpitations. Respiratory: No shortness of breath, no wheezes, no cough. Gastrointestinal: No vomiting, no diarrhea. Left flank and abdominal pain. Genitourinary: No dysuria, no hematuria. Musculoskeletal: Normal range of motion. Skin: No rashes, no pruritis. Neurological: No dizziness, weakness, sensory change, speech change. Endo/Heme/Allergies: No bruising or bleeding. No polydipsia. Pysch: no suicidality, no anxiety, no insomnia. All other systems reviewed and are negative. [facility] Medical History (Updated 07/27/25 @ 15:44 by Kellie Torres) History of basal cell carcinoma (BCC) ?Z85.828 - Personal history of other malignant neoplasm of skin (ICD-10) Surgical History (Updated 07/27/25 @ 15:44 by Kellie Torres) History of lithotripsy ?Z98.890 - Other specified postprocedural states (ICD-10) History of Mohs micrographic surgery for skin cancer (12/07/24) ?Z85.828 - Personal history of other malignant neoplasm of skin (ICD-10) ?Z98.890 - Other specified postprocedural states (ICD-10) Social History Smoking Status: Current every day smoker What tobacco products do you use: cigarettes Smoking packs per day: 0.5 Smoking cigarettes per day: 10.0 Do you use any of these nicotine containing products: Vaping Products How often do you have a drink containing alcohol: never AUDIT-C Alcohol total score: 0 Non-prescribed substance use: denies use Exam Narrative: Exam Narrative: Constitutional: Well-developed, well-nourished, no acute distress. HEENT: Normocephalic, atraumatic. Neck: Normal range of motion. Nontender. Supple. Heart: Intact distal pulses. Lungs: No chest discomfort. No wheezes, rhonchi, or rales. Abdomen: Pain located in the left flank and left abdomen. Back: Normal range of motion. Extremities: Normal range of motion. No injury. Skin: Intact. No rash. Warm. No erythema or pallor. Neurologic: No altered sensation. No weakness. Alert and oriented. Psychiatric: No suicidality. No anxiety or depression. No insomnia. Nursing notes and vitals signs are reviewed. Const: Vital Signs, click to edit/add: Vital Signs - 24 hr 07/27/25 13:38 Temperature 97.4 F L Pulse Rate [Pulse Oximeter] 78 Respiratory Rate 16 Blood Pressure [Ri ght Upper Arm] 157/106 H Pulse Oximetry 97 Oxygen Delivery Me thod Room Air Course Vital Signs Vital signs: Initial Vital Signs Temperature 97.4 F L 07/27/25 13:38 Temperature Source Temporal Artery Scan 07/27/25 13:38 Pulse Rate 78 07/27/25 13:38 Respiratory Rate 16 07/27/25 13:38 Blood Pressure 157/106 H 07/27/25 13:38 Blood Pressure Mean 123 H 07/27/25 13:38 Blood Pressure Position Sitting 07/27/25 13:38 Pulse Oximetry 97 07/27/25 13:38 Oxygen Delivery Method Room Air 07/27/25 13:38 Vital Signs Temperature 97.4 F L 07/27/25 13:38 Pulse Rate 78 07/27/25 13:38 Respiratory Rate 16 07/27/25 13:38 Blood Pressure 157/106 H 07/27/25 13:38 Pulse Oximetry 97 07/27/25 13:38 Oxygen Delivery Method Room Air 07/27/25 13:38 Temperature 97.4 F L 07/27/25 13:38 Pulse Rate 78 07/27/25 13:38 Respiratory Rate 16 07/27/25 13:38 Blood Pressure 157/106 H 07/27/25 13:38 Pulse Oximetry 97 07/27/25 13:38 Oxygen Delivery Method Room Air 07/27/25 13:38 Medications Administered Medications: Discontinued Medications Generic Name Dose Route Start Last Admin Trade Name Freq PRN Reason Stop Dose Admin Ketorolac Tromethamine 10 mg 07/27/25 14:11 07/27/25 14:32 Ketorolac 10 Mg Tablet PO 07/27/25 14:12 10 mg ONCE ONE Administration Ondansetron HCl 4 mg 07/27/25 14:11 07/27/25 14:32 Ondansetron Odt 4 Mg Tab PO 07/27/25 14:12 4 mg ONCE ONE Administration Medical Decision Making MDM Narrative Medical decision making narrative: This patient comes in with left flank pain and has a history of kidney stones. I did obtain a CT scan which shows evidence of a 7 mm stone in the proximal left ureter with mild hydronephrosis. Urinalysis does not show any sign of infection but there is expected microscopic hematuria. The patient received an oral dose of Toradol and Zofran and is feeling better with these treatments. I stated that the size of this stone may likely need intervention from a urologist but this would not likely occur immediately. I did offer to arrange transfer or some kind a follow-up plan. The patient prefers to return home and states that he can return to [facility] where he had a urologist remove a kidney stone about a year ago. I did provide prescriptions for Toradol, [place], Zofran, and Flomax. Lab Data Labs: Lab Results 12/30/25 Range/Units 14:35 Urine Color Yellow (Yellow) Urine Appearance Clear (Clear) Urine pH 5.5 (5.0-8.5) Ur Specific Aline >= 1.030 (1.000-1.030) Urine Protein Negative (Negative) Urine Glucose (UA) Negative (Negative) Urine Ketones Negative (Negative) Urine Blood 3+ A (Negative) Urine Nitrite Negative (Negative) Urine Bilirubin Negative (Negative) Urine Urobilinogen 0.2 (0.2-1.0) Ur Leukocyte Esterase Negative (Negative) Urine RBC 5-10 A (0-2) Urine WBC 0-2 (0-5) Ur Squamous Epith Cells None (None-Few) Urine Bacteria None (None) Imaging Data CT scan - abdomen: Radiologist's impression: 1. 7 mm stone within the left proximal ureter with associated mild hydronephrosis. 2. Additional punctate nonobstructing bilateral nephroliths. 3. 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 Discharge Plan Discharge Clinical Impression: Left ureteral calculus Patient Disposition: Home, Self-Care Condition: Stable Additional Instructions: take medications as needed and directed. Follow up with Urology Clinic or return to emergency room if not improving or worsening symptoms occur. Prescriptions: New ondansetron HCl 4 mg tablet 4 mg PO Q6H Qty: 20 0RF ketorolac 10 mg tablet 10 mg PO TID 5 Days Qty: 15 0RF tamsulosin 0.4 mg capsule 0.4 mg PO DAILY Qty: 10 0RF hydrocodone-acetaminophen 5-325 mg tablet 1 tab PO Q4-6H PRN (Reason: pain) Qty: 20 0RF Follow Up/Referrals: Provider,Not a Local [Primary Care Provider, Family Practice] Stand Alone Forms: [facility] Info Instructions
[2025-07-27] MEDS: KETOROLAC 10 MG TABLET PO (14:32)
[2025-07-27] MEDS: ONDANSETRON ODT 4 MG TAB PO (14:32)
[2025-07-27 14:40] LABS: Appearance Urine Clear (Clear)
[2025-07-27 16:18] VITALS: RESP 20; TEMP 36.2
== END 2025-07-27 16:18 | disposition home or self-care (01) ==
PROVIDERS: Emergency Provider Emergency Medicine Emergency Medical Services
DX: N13.2 Hydronephrosis with renal and ureteral calculous obstruction (principal); F17.210 Nicotine dependence, cigarettes, uncomplicated; Z87.442 Personal history of urinary calculi
CPT/HCPCS: 74176; 81001; 99284; A9270

== ENCOUNTER 2025-07-28 09:25 | Outpatient (CLI) | payer MEDICAID, SELFPAY | END 2025-07-28 09:26 | disposition home or self-care (01) | PROVIDERS: PCP Family Medicine; Visit Provider Family Medicine | DX: N20.1 Calculus of ureter (principal); Z13.6 Encounter for screening for cardiovascular disorders | CPT/HCPCS: 80053; 80061 ==